=== PATIENT | female | born 2000 | race Caucasian/White ===

== ENCOUNTER 2025-07-12 07:15 | Outpatient (AMB) | payer OTHER, SELFPAY ==
[2025-07-12 07:18] VITALS: BP 92/60; PULSE 94; RESP 16; TEMP 36.8; O2SAT 100; BMI 22.3
--- NOTE | 2025-07-12 07:18 | AM.OFFWIN_ITS ---
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 SHe is sexually active with one Male partner - no protection. She is currently taking EDDIE BARRY and she does not get regular periods just Spotting. Reports h/o Chronic Yeast infections in the past and usually symptoms resolves without Treatment. Denies any Pelvic or lower abdominal cramping. [facility] Medical History (Updated 07/12/25 @ 07:39 by Heather Fontana NP) Vaginitis and vulvovaginitis Review of Systems Const All systems reviewed & are unremarkable except as noted in HPI and below Physical Exam Vital Signs: Last Vital Signs Temp 98.3 F 07/12/25 07:18 Pulse 94 07/12/25 07:18 Resp 16 07/12/25 07:18 BP 92/60 07/12/25 07:18 Pulse Ox 100 07/12/25 07:18 Oxygen Delivery Method Room Air 07/12/25 07:18 BMI result Body Mass Index 22.3 Const General: comfortable and no acute distress Nutritional Appearance: well nourished Orientation/consciousness: patient oriented x3 GI Inspection: Yes normal to inspection Palpation (GI): Soft to palpation, not firm, nontender, no guarding and not rigid External Female Exam: erythema, externally tender and No urethral discharge Speculum Exam - Vagina: abnormal vaginal discharge white and malodorous Speculum Exam - Cervix: Cervical os open, Abnormal cervical discharge present white and malodorous and nontender Bimanual exam- vagina & uterus: uterine size normal, No Cervical tenderness present and no cervical motion tenderness OB/external & speculum: Cervical os open Neuro General: patient oriented x3, gait normal and moves all extremities Psych Speech and movement: Normal speech and movement present Assessment & Plan Assessment & Plan (1) Vaginitis and vulvovaginitis: Code(s): N76.0 - Acute vaginitis Plan: Exam consistent with BV/YEAST. Will start Treatment for Both today Ordered Vaginal Panel plus NG/CT Educated on safer Sex practices. Educated on ways to prevent frequent Vaginal infections. Advised not to drink Alcohol or any fluid with Alcohol while taking Metro nidazole. Orders: Orders Bacterial Vaginosis Panel Today N76.0 - Acute vaginitis CT NG by PCR Vag/Cerv Today N76.0 - Acute vaginitis Medications: New fluconazole 150 mg PO Q3D 3 tabs 2RF 3 days N89.8 - Other specified noninflammatory disorders of vagina metronidazole 500 mg PO BID 14 tabs 0RF 7 days N76.0 - Acute vaginitis Coding Level of Care Code New Pt Level 4 (72824) Diagnoses Vaginitis and vulvovaginitis N76.0 Time Spent (min) 25
--- OUTSIDE RECORDS SUMMARY | 2025-07-12 07:18 | XMS_ITS | Clinical Summary ---
Author Organization [facility] Address [address] [place], [place] [id number] Phone Care Team Providers Care Rn Emergency Name Role Phone Unavailable Primary Care Provider Unavailabl e Allergies No known active allergies Medications No known medications Active Problems Problem Noted Date Diagnosed Date Vision blurring 05/27/2021 Acute nonintractable headache 05/27/2021 Overview (05/27/2021): Possibly due to head trauma 05-21. Was intoxicated but suspects trauma. 05/27/2021 normal exam but persistent issues with visual blurring with normal ophthalmology exam Assessment & Plan (05/27/2021 4:36 PM EDT): Discussed possibility of concussion while intoxicated with alcohol. Discussed alcohol use and concern with hx of blackouts and family hx of alcohol issues. Madyson not concerned at this time. Recommendations: I recommend avoiding activities that risk head trauma until rechecked and avoid alcohol and any other intoxicating substances. Discussed concern about risks of additional head trauma if still healing from a concussion May do light exercise and walking as tolerating May try Melatonin 1-3 mg 1-2 hours before bedtime. Try and get at least 8 hours of sleep Avoid aggravating activities if possible Follow-up next week with Dr. Dent. Call sooner if any new or worsening symptoms Dizziness 02/10/2021 Syncope 02/10/2021 Tachycardia 02/10/2021 Exercise-induced tachycardia 01/29/2021 Overview (01/29/2021): Noted as of today but has been going on forever. Assessment & Plan (01/29/2021 3:06 PM EDT): Refer to Cardiology. Orthostatic hypotension 12/04/2020 Overview (12/04/2020): Recommended 2-3 L water intake and > 2500 mg sodium daily. Assessment & Plan (12/04/2020 4:27 PM EST): Recommended 2-3 L water intake and > 2500 mg sodium daily. Spinal asymmetry (< 10 degrees) 06/24/2016 Overview (07/21/2018): Scoliosis (737.30) Onset: 06/24/2016 Added by: Yudelka Dent Immunizations Immunization Administration Dates Next Due DTaP 5 10/15/2006, 3,04/10/2003,04/14,04/14/2002,02/07/2002,02/07/2002 ,2001,2001 HPV, Quadrivalent 10/31/2014,06/27/2014,04/26/20 14 Hep A, ped/adol 10/31/2014,04/26/2014 Hep B, ped/adol 07/18/2002, 2,2001,11/03,2001,2001 Hib (HbOC) 01/05/2003, 2,02/07/2002,12/07 Hib (PRP-T) 01/05/2003, 2,02/07/2002,12/07 IPV 10/15/2006, 2,07/18/2002,02/07,02/07/2002,2001,2001 Influenza, injectable, quadr ivalent, preservative free 07/25/2020,12/27/2019,07/22/2018,06/29,08/20/2015 Influenza, intranasal, quadrivalent 09/26/2014,1 11/01/2012 Influenza, intranasal, trivalent 08/26/2012 MMR 10/15/2006,10/03/2002,10/03/2002 Meningococcal B Trumenba 07/25/2020,12/27/2019 Meningococcal Conj (Menactra) MCV4P 07/22/2018,0 04/14/2013 Pneumococcal Conjugate 04/10/2003,2002,04/14/2002,04/14,02/07/2002,02/07/2002,2001 ,2001 Tdap 04/14/2013 Varicella 04/14/2013,10/03/2002,10/03/2002 Family History Medical History Relation Name Comments ADD / ADHD Brother Anxiety disorder Maternal Grandfather Colon cancer Maternal Grandfather Depression Maternal Grandfather Hyperlipidemia Maternal Grandfather Hypertension Maternal Grandfather Thyroid disease Maternal Grandfather Depression Maternal Grandmother Hypertension Maternal Grandmother Kidney disease Maternal Grandmother Thyroid disease Maternal Grandmother Allergic rhinitis Mother Anxiety disorder Mother Hypertension Mother Thyroid disease Mother Relation Name Status Comments Brother Maternal Grandfather Maternal Grandmother Mother Social History Tobacco Use Types Packs/Day Years Used Date Smoking Tobacco: Never Smokeless Tobacco: Never Hunger/Food Answer Date Recorded In the last 12 months, did y ou or your family ever eat less than you felt you should because there wasn't enough money for food? No 12/20/2020 Stable Housing Answer Date Recorded Are you worried that in the next 2 months you may not have stable housing? No 12/20/2020 Transportation Concerns Answer Date Rec orded In the last 12 months, have you or your family ever had to go without healthcare because you didn't have a way to get there? No 12/20/2020 Hazards in Home Answer Date Recorded Think about the place you li ve. Do you have problems with any of the following? Pests (mice or roaches), mold, no/not working smoke detectors, water leaks, no window guards. No 2020 Financing Utilities Answer Date Recorde d In the last 12 months, has t he electric, gas, oil, or water company threatened to shut off your services in your home? No 12/20/2020 Safety at Home Answer Date Recorded Are you or your family worried about feeling saf e in your home? No 12/20/2020 Outside Support Answer Date Recorded Do you feel that you need mo re support from other people or programs to help you care for yourself or your family? No 12/20/2020 Understanding Health Concerns Answer Da te Recorded Do you need help understandi ng your or your child's healthcare needs (diagnosis, medications, plan, etc.)? No 12/20/2020 Financing Health Concerns Answer Date R ecorded In the last 12 months, was t here a time when your child needed to see a doctor or get medications or supplies but could not because of cost? No 12/20/2020 Missing School or Work Answer Date Oscar rded Did you or your child miss s chool or work because of a health problem that could have been avoided? No 12/20/2020 Comments No Sex and Gender Information Value Date Recorded Sex Assigned at Not on file Legal Sex Female 6:14 PM EDT Gender Identity Not on file Sexual Orientation Straight 12/27/2019 2: 19 PM EDT Last Filed Vital Signs Vital Sign Reading Time Taken Comments Blood Pressure 108/74 05/27/2021 3:58 PM EDT Pulse 91 05/27/2021 3:58 PM EDT Temperature 36.6 C (97.8 F) 05/27/2021 3:58 PM EDT Respiratory Rate 18 12/27/2020 10:35 AM EST Oxygen Saturation 98% 05/27/2021 3:58 PM EDT Inhaled Oxygen Concentration - - Weight 58.2 kg (128 lb 4.9 oz) 05/27/2021 3:58 P M EDT Height 166 cm (5' 5.35 ) 04/28/2021 3:39 PM EDT Body Mass Index 21.12 04/28/2021 3:39 PM EDT Plan of Treatment Health Maintenance Due Date Last Done Comments DTaP,Tdap,and Td Vaccines (7 - Td or Tdap) 04/14/2023 04/14/2013, 10/15/2006, 04/10/2003, Additional history exists Influenza Vaccines (#1) 2025 07/25/20 20, 12/27/2019, 07/22/2018, Additional history exists COVID-19 Vaccine (2024-2 6 season) 2025 10/13/2021, 01/31/2021, 01/08/2021 Hepatitis B Vaccines Completed 07/18/2002, 07/18/2002, 2001, Additional history exists HIB Vaccines Completed 01/05/2003, 12/17, 04/14/2002, Additional history exists Pneumococcal Vaccine Completed 04/10/2003, 04/10/2003, 04/14/2002, Additional history exists IPV Vaccines Completed 10/15/2006, 10/2001, 07/18/2002, Additional history exists MMR Vaccines Completed 10/15/2006, 09/17, 10/03/2002 Varicella Vaccines Completed 04/14/2013, 1 2001, 10/03/2002 HPV Vaccines Completed 10/31/2014, 06/18, 04/26/2014 Hepatitis A Vaccines Completed 10/31/2014, 04/26/20 14 Meningococcal Vaccine Completed 07/22/2018, 013 Men B Vaccine Completed 07/25/2020, 12/27/2019 Procedures * Due to [place] Pivot law, this organization might not be sharing sensitive test results. Procedure Name Priority Date/Time Associated Diagnosis Comments CHLAMYDIA AND GONORRHEA, AMPLIFIED Routine 12/27/2019 2:54 PM EDT Routine screening for STI (sexually transmitted infection) from Last 3 Months or Most Recently Relevant to Health Maintenance Results * Due to [place] Pivot law, this organization might not be sharing sensitive test results. * Chlamydia and Gonorrhoea, Amplified (12/27/2019 2:54 PM EDT) Chlamydia Trachomatis, DNA Probe NEGATIVE (NEG) [facility] Comment: No Chlamydia Trachomatis RNA detected in this patient's sample (REFERENCE RANGE/NORMAL VALUE: NOT DETECTED) Note: This test uses finishing operator- mediated amplification method to detect rRNA from C. Trachomatis URINE GC AMP PROBE NEGATIVE (NEG) [facility] Comment: No Neisseria Gonorrhoeae RNA detected in this patient's sample (REFERENCE RANGE/NORMAL VALUE: NOT DETECTED) NOTE: This test uses finishing operator-mediated amplification method to detect rRNA from N.Gonorrhoeae. A negative result does not preclude infection. In the case of a negative urine result, testing of an endocervical(female) or urethral (male) specimen is recommended if there is high clinical suspicion of infection. Due to very high sensitivity of Nucleic Acid Amplification Test, false positive results may occur. Therefore, specimen handling is extremely important. In patients in whom the disease is unlikely, additional sample for testing should be considered after an initial positive result. The performance characteristics of this test have not been evaluated in children. The Aptima Combo2 assay is not intended for the evaluation of suspected sexual abuse or for other medico-legal indications. The ordering provider should assess if the patient had consensual sex without risk of sexual abuse. Consult the [facility] if needed. Contact phone number . Therapeutic failure or success cannot be determined with the Aptima Combo2 assay since nucleic acid may persist following appropriate antimicrobial therapy. The Centers for Disease Control and Prevention (CDC) recommends confirmatory retesting using culture or a different nucleic acid amplification test when positive results occur, if indicated. Testing performed or reported by [facility], a Service of [facility], [address] [place] [address] Fortunato Jalloh MD, Professor Of Biblical Studies Urine 12/27/2019 2:54 PM EDT 12/27/2019 11:08 PM EDT us uYdelka Dent MD LAB MICROBIOLOGY - GENERAL ORD ERABLES Final Result [facility] from Last 3 Months or Most Recently Relevant to Health Maintenance Insurance [facility]
--- OUTSIDE RECORDS SUMMARY | 2025-07-12 07:18 | XMS_ITS | Clinical Summary ---
Author Organization [facility] Address [address] [place], [place] [id number] Phone Care Team Providers Care Integrated Circuit Fabricator Name Role Phone Milka Diallo MD Primary Ca re Provider Allergies No known active allergies Medications No known medications Active Problems No known active problems Immunizations No known immunizations Social History Tobacco Use Types Packs/Day Years Used Date Smoking Tobacco: Some Days Cigarettes Smokeless Tobacco: Never Tobacco Cessation:Ready to Q uit: Not Asked; Counseling Given: Not Answered Alcohol Use Standard Drinks/Week Comments Yes 0 (1 standard drink = 0.6 oz pur e alcohol) Occassionally Education Answer Date Recorded Are you interested in more education? Not on pilo e 02/13/2023 Are you concerned about learning? Not on file 02/13/2023 No 02/13/2023 No 02/13/2023 Digital Access Answer Date Recorded No 03/14/2023 No 03/14/2023 No 03/14/2023 Reliable internet access at home? Not on file 03/14/2023 Device with a working camera? Not on file Comments Unknown Sex and Gender Information Value Date Recorded Sex Assigned at Not on file Legal Sex Female 1:22 PM EDT Gender Identity Not on file Sexual Orientation Not on file Last Filed Vital Signs Vital Sign Reading Time Taken Comments Blood Pressure 108/88 11/18/2022 6:26 PM EST Pulse 97 11/18/2022 6:26 PM EST Temperature 36.7 C (98.1 F) 11/18/2022 6:26 PM EST Respiratory Rate 20 11/18/2022 6:26 PM EST Oxygen Saturation 98% 11/18/2022 6:26 PM EST Inhaled Oxygen Concentration - - Weight 56.7 kg (125 lb) 11/18/2022 6:26 PM EST Height 165.1 cm (5' 5 ) 11/18/2022 6:26 PM EST Body Mass Index 20.8 11/18/2022 6:26 PM EST Plan of Treatment Health Maintenance Due Date Last Done Comments DEPRESSION SCREENING 2013 SMOKING Hx and SMOKELESS TOB ACCO SCREENING 2014 CHLAMYDIA SCREENING 2017 HEPATITIS C SCREENING 2019 HIV ONE-TIME SCREENING (18-6 5 YEARS) 2019 PNEUMOCOCCAL VACCINES (0-49 years) (1 of 2 - PCV) 2020 04/10/2003, 04/14/2002, 02/07/2002, Additional history exists PAP SMEAR 2022 Adult Td,Tdap Booster 04/14/2023 04/14/2013 INFLUENZA VACCINE (#1) 2025 , 12/27/2019, 07/22/2018, Additional history exists COVID-19 VACCINE (4 - 2024-2 6 season) 2025 10/13/2021, 01/31/2021, 01/08/2021 HIB VACCINES Completed 01/05/2003, 03/19, 02/07/2002, Additional history exists HEPATITIS A VACCINES Completed 10/31/2014, 04/26/20 14 HPV VACCINES Completed 10/31/2014, 06/18, 04/26/2014 MENINGOCOCCAL VACCINES (ACWY) Completed 07/22/2018, 04/14/2013 MENINGOCOCCAL VACCINES (B) Completed 07/25/2020, Medical Devices Not on file Insurance [facility] [address] [facility] [address] [facility] [place] [address] [place] [address] [place] [address] [place] [address] H[facility] Care Teams Integrated Circuit Fabricator Relationship Specialty Start Date End Date Milka Diallo MD [address] [place] [id number] PCP - General 01/05/22 Additional Source Comments The information contained in this document represents components of the legal health record. It is not the complete legal health record.[facility]
--- OUTSIDE RECORDS SUMMARY | 2025-07-12 07:18 | XMS_ITS | Encounter Summary ---
Author Organization [facility] Address [address] [place] [address] Phone Care Team Providers Care Corn Grinder Name Role Phone Yudelka Dent MD Primary Care Provider [phone] Encounter Details Date Type Department Care Team (Late st Contact Info) Description 04/08/2012 Conversion Encounter [facility] [place] [address] [place] [id number] Social History Tobacco Use Types Packs/Day Years Used Date Smoking Tobacco: Never Assessed Comments Unknown Sex and Gender Information Value Date Recorded Sex Assigned at Not on file Legal Sex Female 6:14 PM EDT Gender Identity Not on file Sexual Orientation Straight 12/27/2019 2: 19 PM EDT documented as of this encounter Plan of Treatment Not on file documented as of this encounter Visit Diagnoses Not on filedocumented in this encounter Care Teams Corn Grinder Relationship Specialty Start Date End Date Yudelka Dent MD [address] [place] [address] PCP - General 02/23/18 01/19/23 documented as of this encounter
== END 2025-07-12 08:13 | disposition home or self-care (01) ==
PROVIDERS: Visit Provider Nurse Practitioner Family
DX: N76.0 Acute vaginitis (principal)

== ENCOUNTER 2025-07-12 07:15 | Outpatient (REF) | payer OTHER, SELFPAY ==
[2025-07-12 12:40] LABS: Bacterial Vaginosis PCR NEGATIVE (Negative); Candida Group PCR DETECTED (Not Detect); Candida glab krusei PCR NOT DETECTED (Not Detect); Trichomonas vaginalis PCR NOT DETECTED (Not Detect)
[2025-07-12 15:11] LABS: CT PCR NOT DETECTED (Not Detect.); NG PCR NOT DETECTED (Not Detect.)
== END 2025-07-12 07:16 | disposition home or self-care (01) ==
LOC: HO.LAB 07:15
PROVIDERS: Visit Provider Nurse Practitioner Family
DX: N76.0 Acute vaginitis (principal); Z20.2 Contact with and (suspected) exposure to infections with a predominantly sexual mode of transmission
CPT/HCPCS: 81515; 87491; 87591